=== PATIENT | female | born 1975 | race Caucasian/White ===

== ENCOUNTER → 2023-02-23 | Outpatient (CLI) | payer OTHER, SELFPAY ==
--- NOTE | 2023-02-23 12:57 | BD_ITS ---
STUDY: DUAL ENERGY X-RAY ABSORPTIOMETRY / DXA REASON FOR EXAM: Female, 47 years old. BREAST CANCER TECHNIQUE: Bone Mineral Density (BMD) measurements of lumbar spine and bilateral hips were obtained. COMPARISON: None. FINDINGS: Lumbar Spine (L1-L4): g/cm2 (1.704) / T-score (6.3) / Z-score (6.9) Findings are suggestive of normal bone density with a low fracture risk. Left Femur Total: g/cm2 (1.374) / T-score (3.5) / Z-score (4.0) Left Femoral Neck: g/cm2 (1.130) / T-score (3.5) / Z-score (3.2) Right Femur Total: g/cm2 (1.386) / T-score (3.6) / Z-score (4.1) Right Femoral Neck: g/cm2 (1.195) / T-score (3.1) / Z-score (3.8) BD/Dexa Bone Density Study IMPRESSION: The patient is considered normal as outlined below according to World Sebastian Organization (WHO) criteria with a low fracture risk. Reference Information: The T-score is the number of standard deviations above or below the standard which is normal for young adults at their peak bone mineral density. The World Health Organization (WHO) interprets the T-scores as follows: Above -1 Normal bone density Between -1 and -2.5 Osteopenia Equal to / or below -2.5 Osteoporosis As a practical clinical guideline, osteopenia may be graded as follows: Mild -1 through -1.5 Moderate -1.6 through -2.0 Severe -2.1 through -2.4 The Z-score is the number of standard deviations above or below age-matched controls. A Z-score of less than -1.5 would be considered abnormal. References: 1. NIH Osteoporosis and Related Bone Diseases www osteo.org 2. International Society for Clinical Densitometry www iscd.org 3. National Osteoporosis Foundation www nof.org Electronically Signed: Kaushal Mace MD at 14:06 EDT ,
== END | disposition home or self-care (01) ==
LOC: OPBD 12:49
PROVIDERS: Referring Provider Internal Medicine Medical Oncology; Visit Provider Internal Medicine Medical Oncology
DX: C50.911 Malignant neoplasm of unspecified site of right female breast (principal)
CPT/HCPCS: 77080